=== PATIENT | female | born 1975 | race Caucasian/White ===

== ENCOUNTER 2021-01-13 13:29 | Outpatient (CLI) | payer BC, SELFPAY ==
[2021-01-13 14:08] LABS: Add Urine Microscopic? YES; Appearance Urine Cloudy (Clear); Bilirubin Urine Negative (Negative); Blood Urine 3+ (Negative); Color Urine Amber (Yellow); Glucose Urine UA Negative (Negative); Ketones Urine Negative (Negative); Leukocyte Esterase Ur 1+ LEU/UL (Negative); Nitrate Urine Negative (Negative); Protein Urine 2+ mg/dL (Negative); RBC Urine >75 /hpf (0-2); Specific Grav Ur 1.023 (1.001-1.035); Squamous Epithelial Cell Urine Many /hpf (Few); WBC Urine >75 /hpf
[2021-01-13 14:49] LABS: Thyroid Stimulating Hormone 0.072 uIU/mL (0.465-4.680)
== END 2021-01-13 13:30 | disposition home or self-care (01) ==
PROVIDERS: PCP Internal Medicine; Visit Provider Internal Medicine
DX: R30.0 Dysuria (principal); E03.9 Hypothyroidism, unspecified
CPT/HCPCS: 36415; 81001; 84439; 84443; 87086; 87088

== ENCOUNTER 2021-01-14 08:47 | Outpatient (CLI) | payer BC, SELFPAY ==
--- NOTE | ~2021-01-14 | CT_ITS ---
EXAMINATION: CT abdomen pelvis w con INDICATION: Hematuria TECHNIQUE: Computed tomographic images of the abdomen and pelvis were obtained after the administrati on of 100 cc of Omnipaque 350 intravenous contrast. The dose-length product (DLP) was 946.76 mGy-cm. Automated exposure control and iterative reconstruction technique were employed. COMPARISON: None available FINDINGS: Minimal dependent atelectasis is present in the lung bases. The heart size is normal. The g allbladder is surgically absent. Surgical changes in the stomach likely reflect gastric sleeve surger y. The liver, spleen, pancreas, and adrenal glands are normal. There is a 7 mm stone in a lower pole calyx left kidney. The right kidney is unremarkable. There is no hydronephrosis or hydroureter. No pa thologically enlarged abdominal or pelvic lymph nodes are identified. There is no free intraperitonea l gas or evidence of bowel obstruction. A moderate volume of colonic stool is present. The appendix i s normal. There is moderate lumbar spondylosis. IMPRESSION: 1. 7 mm stone in a lower pole calyx of the left kidney. Reviewed, dictated and finalized at location A. ER OPERATOR
== END 2021-01-14 08:48 | disposition home or self-care (01) ==
LOC: ANHIMG 08:55
PROVIDERS: PCP Internal Medicine; Visit Provider Internal Medicine
DX: R31.9 Hematuria, unspecified (principal); R10.9 Unspecified abdominal pain; N20.0 Calculus of kidney
CPT/HCPCS: 74177; Q9967

== ENCOUNTER 2021-01-16 10:53 | Outpatient (CLI) | payer BC, SELFPAY ==
--- NOTE | ~2021-01-16 | XR_ITS ---
EXAMINATION: XR abdomen/kub 1V INDICATION: Nephrolithiasis TECHNIQUE: Supine views of the abdomen were obtained on 2 radiographs. COMPARISON: CT, 01/14/2021 FINDINGS: There is a 7 mm stone in the lower pole of the left kidney. No stones are identified along the expected courses of the ureters or bladder. There are phleboliths of the pelvis. A large volume o f colonic stool is present. Surgical changes of the stomach are again noted. There are cholecystectom y clips. IMPRESSION: 1. Left nephrolithiasis. 2. Constipation. Reviewed, dictated and finalized at location A. HER
== END 2021-01-16 10:54 | disposition home or self-care (01) ==
PROVIDERS: PCP Internal Medicine; Visit Provider Urology
DX: N20.0 Calculus of kidney (principal); K59.00 Constipation, unspecified
CPT/HCPCS: 74018

== ENCOUNTER → 2021-01-20 00:24 | Outpatient (CLI) | payer BC, SELFPAY ==
[2021-01-20 19:32] LABS: SARS-CoV-2 RNA PCR Negative
== END ==
PROVIDERS: PCP Internal Medicine; Visit Provider Urology
DX: Z01.812 Encounter for preprocedural laboratory examination (principal); Z20.822 Contact with and (suspected) exposure to COVID-19
CPT/HCPCS: C9803; U0003; U0005

== ENCOUNTER 2021-01-22 10:14 | Outpatient (CLI) | payer BC, SELFPAY ==
[2021-01-22 10:44] LABS: INR 0.9; Prothrombin Time 12.9 Seconds (11.1-14.7)
[2021-01-22 10:45] LABS: Partial Thromboplastin Time 26.7 SECONDS (22.3-36.8)
== END 2021-01-22 10:15 | disposition home or self-care (01) ==
PROVIDERS: PCP Internal Medicine; Visit Provider Urology
DX: N20.0 Calculus of kidney (principal); Z01.818 Encounter for other preprocedural examination
CPT/HCPCS: 36415; 85610; 85730

== ENCOUNTER 2021-01-23 01:55 | Day surgery (SDC) | payer BC, SELFPAY ==
[2021-01-20 13:10] VITALS: BMI 33.7
[2021-01-23] VITALS (7 sets, daily range): BP systolic 114–128; BP diastolic 71–92; PULSE 70–86; RESP 16–20; TEMP 36.2–36.6; O2SAT 93–100; BMI 33.8
--- NOTE | ~2021-01-23 | XR_ITS ---
EXAMINATION: XR abdomen/kub 1V EXAM DATE: 01/23/2021 10:05 INDICATION: Left-sided stone, lithotripsy. TECHNIQUE: Frontal projection of the upper abdomen, frontal projection lower abdomen/pelvis for inter pretation. Comparison is made to prior examination from 01/16/2021. FINDINGS: Again there is approximately 7 mm calcific density projecting over the lower pole of the l eft kidney. This finding has been indicated, marked on the examination for review, clinical correlati on. There are cholecystectomy clips. Moderate amount of colonic stool and gas. No small bowel dilatio n. There are no osseous abnormalities identified. IMPRESSION: Left nephrolithiasis reidentified. Reviewed, dictated and finalized at location B. MA DOCTOR
--- NOTE | 2021-01-23 10:28 | WPDANESEPPF ---
Anes - Initial Pre Proc Eval Procedure: Operation Date: 01/23/21 12:00 Proposed Procedures p Left Renal Extracorporeal Shock Wave Lithotripsy - Reg Milan MD s Flexible Cystoscopy - Reg Milan MD Date/Time: 01/23/21 10:28 Surgeon: Reg Milan MD Pre Op Diagnosis: Kidney Stone Patient Data Age: 45 Gender: F Height: 5 ft 3 in Weight: 86.6 kg Last Vital Signs Temp 97.9 F 01/23/21 10:25 Pulse 86 01/23/21 10:25 Resp 18 01/23/21 10:25 BP 128/92 H 01/23/21 10:25 Pulse Ox 99 01/23/21 10:25 Allergies Allergy/AdvReac Type Severity Reaction Status Date / Time morphine AdvReac Severe N/V Verified 01/23/21 10:13 Home Medications Medication Instructions Recorded Confirmed Type alprazolam 0.5 mg tablet 0.5 mg PO PRN PRN 11/01/19 01/23/21 History atomoxetine 60 mg capsule 60 mg PO DAILY #90 cap 08/21/20 01/23/21 Rx duloxetine 30 mg capsule,delayed 60 mg PO .in am and 1 in pm #270 08/22/20 01/23/21 Rx release cap levothyroxine 150 mcg tablet 150 mcg PO DAILY #90 tablet 10/16/20 01/23/21 Rx hydrocodone 5 mg-acetaminophen 325 1 tablet PO Q12H PRN #60 tablet 01/14/21 01/23/21 Rx mg tablet Patient hx anesthesia problems: none Family hx anesthesia problems: none PMFSH Past Medical History Medical History (Updated 01/23/21 @ 10:26 by Ye Gonzales MD) Adult ADHD Hyperlipidemia Hypothyroidism Family History Family History Mother Hypertension Patient's mother is in good health Father Patient's father is in good health Social History Social History Smoking packs per day: 0.5 Smoking cigarettes per day: 10.0 Years smoked: 20 Smoking pack-years: 10.00 Smoking status: Light tobacco smoker Second hand tobacco smoke exposure: No Smoking end date: 11/29/13 Additional smoking assessment comments: 1/2ppd x 15years Alcohol intake: never Substance use: never Living arrangements: with family Spiritual care concerns: No Anes - Eval Final PreProcedure Day of Procedure 01/23/21 10:28 Patient weight: obese Heart: regular rate and rhythm Lungs: clear to auscultation Airway: Mallampati scale class II Neurological: alert and oriented Last oral intake: >/= 8 hours ASA classification: III Emergent: no Anesthetic plan: proceed Anesthesia type and monitoring: general LMA and standard monitoring Informed Consent: The patient's anesthetic plan and its attendant risks and benefits were discussed with the patient/family/POA. Questions were solicited and answers provided to the satisfaction of the patient/family/POA.
[2021-01-23] MEDS: LACTATED RINGERS 1,000 ML 30 ML IV CONT (10:37)
--- NOTE | 2021-01-23 12:20 | WPDHPUPDATE1 ---
History and Physical Update Update Date/Time: 01/23/21 12:20 History and Physical has been reviewed, including an updated exam of the patient. There are NO changes in the patient's condition. Risks, benefits, and alternatives have been discussed and questions answered. Patient agrees to proceed with procedure. eswl of left renal calculus with flexible cysto.
[2021-01-23] MEDS: ceFAZolin 2 GM/D5W 50 ML 2 GM/50 ML BAG IVPB (12:32)
--- NOTE | 2021-01-23 13:11 | PM.PROC ---
Procedure Note - Detailed Date of procedure: 01/23/21 Pre-op diagnosis: Kidney Stone Left renal calculus 8-9 mm, gross hematuria Post-op diagnosis: same Procedure performed: Flexible cystoscopy and lithotripsy of left renal calculus Description of procedure: Patient is taken the operative suite and correctly identified. Once anesthesia was obtained she was placed in a frog-leg position and prepped and draped usual sterile fashion. A 16 [place] flexible scope was inserted into the bladder. There is no tumors noted. Both ureteral orifices normal anatomic position. The patient was then repositioned. The left renal stone was localized in both planes. Two thousand five hundred shocks were given to the stone. Patient tolerated procedure well without complications taken recovery stable condition. She will follow up in about 10 days with KUB. Anesthesia: GLMA Surgeon: Reg Milan MD Drains: No Packing: No Pathology: none sent Complications: No immediate complications Condition: stable Disposition: PACU
[2021-01-23] MEDS: ONDANSETRON INJ 4 MG/2 ML VIAL IV PUSH (13:57)
[2021-01-23] MEDS: oxyCODONE HCL (*CRX) 5 MG TAB IR PO (14:32)
== END 2021-01-23 15:10 | disposition home or self-care (01) ==
PROVIDERS: PCP Internal Medicine; Visit Provider Urology
PROC: (CPT 50590; principal; 2021-01-23 12:00)
PROC: 0TJB8ZZ Inspection of Bladder, Via Natural or Artificial Opening Endoscopic (ICD-10-PCS; CPT 52000; 2021-01-23 12:00)
DX: N20.0 Calculus of kidney (principal); E78.5 Hyperlipidemia, unspecified; E03.9 Hypothyroidism, unspecified; F90.9 Attention-deficit hyperactivity disorder, unspecified type; Z87.891 Personal history of nicotine dependence; E66.9 Obesity, unspecified; Z68.33 Body mass index [BMI] 33.0-33.9, adult
CPT/HCPCS: 50590; 36415; 74018; 85610; 85730; A9270; C9803; J0690; J2250; J2405; J2704; J3010; J7030; J7120; U0003; U0005

== ENCOUNTER 2021-02-03 09:42 | Outpatient (CLI) | payer BC, SELFPAY ==
--- NOTE | ~2021-02-03 | XR_ITS ---
EXAMINATION: XR abdomen/kub 1V INDICATION: 10 days post lithotripsy of the left kidney stone TECHNIQUE: Supine views of the abdomen were obtained on 2 radiographs. COMPARISON: 01/23/2021 FINDINGS: Cholecystectomy clips are present in the right upper quadrant. The previously described lef t kidney lower pole stone is no longer identified. A faint calcification decrease in size of the left kidney lower pole may reflect residual stone fragments. No stones are identified along the expected courses of the ureters or bladder. The bowel gas pattern is normal. There are phleboliths of the pelv is. Left upper quadrant surgical changes likely relate to gastric sleeve or gastric bypass. IMPRESSION: 1. Findings consistent with interval left lithotripsy with possible small stone fragments in the lowe r pole of the left kidney. Reviewed, dictated and finalized at location A. AD SINGER IMPRESSION: 1. Findings consistent with interval left lithotripsy with possible small stone fragments in the lower pole of the left kidney.
== END 2021-02-03 09:43 | disposition home or self-care (01) ==
PROVIDERS: PCP Internal Medicine; Visit Provider Urology
DX: R10.9 Unspecified abdominal pain (principal); Z87.442 Personal history of urinary calculi
CPT/HCPCS: 74018

== ENCOUNTER 2022-08-10 11:07 | Outpatient (CLI) | payer BC, SELFPAY ==
--- NOTE | ~2022-08-10 | XR_ITS ---
EXAMINATION: XR chest 2V DATE: 08/10/2022 11:21 INDICATION: Cough TECHNIQUE: PA and lateral views of the chest were obtained. COMPARISON: None FINDINGS: The lungs are clear with no focal airspace opacities, pulmonary edema, pleural effusion or pneumothor ax. The cardiomediastinal silhouette is normal. Post cystectomy clips in right upper quadrant. Modera te spondylosis in the upper thoracic spine. IMPRESSION: 1. No acute cardiopulmonary disease. Reviewed, dictated and finalized at location A.
== END 2022-08-10 11:08 | disposition home or self-care (01) ==
LOC: ANHIMG 11:13
PROVIDERS: PCP Internal Medicine; Visit Provider Internal Medicine
DX: R05.9 Cough, unspecified (principal)
CPT/HCPCS: 71046

== ENCOUNTER 2024-02-25 09:45 | Outpatient (CLI) | payer BC, SELFPAY ==
--- NOTE | ~2024-02-25 | MR_ITS ---
EXAMINATION: MR lumbar spine wo con DATE: 02/25/2024 12:54 INDICATION: Lumbar radiculopathy. Low back pain. TECHNIQUE: Magnetic resonance imaging (MRI) of the lumbar spine was performed without intravenous con trast. Sequences included sagittal T2-weighted FSE, sagittal T2-weighted FS FSE, sagittal T1-weighted FSE, and axial T2-weighted FSE. COMPARISON: None FINDINGS: Bone alignment is normal. Vertebral body heights are normal. There is a hemangioma in L4 ve rtebral body. There is mildly decreased disc height at L4-L5 and severely decreased disc height at L5 -S1. The distal spinal cord signal intensity is normal. The conus medullaris is at L1. The following disc levels are specifically discussed: L1-L2: The disc does not extend beyond the endplate margin. There is mild bilateral facet joint osteo arthritis. There is no neural foraminal stenosis. There is no central canal stenosis. L2-L3: The disc does not extend beyond the endplate margin. There is mild bilateral facet joint osteo arthritis. There is no neural foraminal stenosis. There is no central canal stenosis. L3-L4: The disc does not extend beyond the endplate margin. There is mild bilateral facet joint osteo arthritis. There is no neural foraminal stenosis. There is no central canal stenosis. L4-L5: The disc is bulging. There is mild bilateral facet joint osteoarthritis. There is mild bilater al neural foraminal stenosis. There is no central canal stenosis. L5-S1: The disc is bulging and has an annular fissure. There is severe right and moderate left facet joint osteoarthritis. There is mild bilateral neural foraminal stenosis. There is mild central canal stenosis. IMPRESSION: 1. Severe lower lumbar spondylosis. Reviewed, dictated and finalized at location A.
== END 2024-02-25 09:46 | disposition home or self-care (01) ==
PROVIDERS: PCP Internal Medicine; Visit Provider Pain Medicine Interventional Pain Medicine
DX: M47.26 Other spondylosis with radiculopathy, lumbar region (principal); M47.27 Other spondylosis with radiculopathy, lumbosacral region; F41.1 Generalized anxiety disorder
CPT/HCPCS: 72148

== ENCOUNTER 2025-02-23 15:30 | Outpatient (CLI) | payer OTHER, SELFPAY ==
--- NOTE | ~2025-02-23 | MM_ITS ---
EXAMINATION: MM screening [facility] w [facility] HISTORY: Screening TECHNIQUE: Craniocaudal and mediolateral oblique 3-D tomosynthesis images were obtained and synthetic 2-D images were generated. CAD analysis was submitted and interpreted. COMPARISON: 04/23/2018 BREAST PARENCHYMAL COMPOSITION: There are scattered areas of fibroglandular density. FINDINGS: Stable parenchymal pattern without suspicious microcalcifications, architectural distortion, discrete masses or significant asymmetry. IMPRESSION: 1. No mammographic evidence of malignancy. 2. Recommend routine screening mammography in one year. BI-RADS Category 1: Negative Reviewed, dictated and finalized at location A.
--- OUTSIDE RECORDS SUMMARY | 2025-02-23 15:38 | XMS_ITS | Clinical Summary ---
Author Organization [facility] Address [address] [place] [id number] Phone Care Team Providers Care Call Center Supervisor Name Role Phone Julian Sims MD Primary Care Provider [phone] Active Problems Problem Noted Date Diagnosed Date Morbid obesity 06/25/2017 Social History Tobacco Use Types Packs/Day Years Used Date Smoking Tobacco: Never Assessed Comments Unknown Sex and Gender Information Value Date Recorded Sex Assigned at Not on file Legal Sex Female 11:38 PM CDT Gender Identity Not on file Sexual Orientation Not on file Plan of Treatment Health Maintenance Due Date Last Done Comments Hepatitis C Virus (HCV) Screening 1974 TdaP Immunization 1974 Hepatitis B Immunization (1 of 3 - 19+ 3-dose series) 1993 Colonoscopy 2019 Colorectal Cancer Screening 2019 Cologuard 2024 Immunochemical Fecal Occult Blood 2024 Pneumococcal Immunization (5 0+ years) (1 of 1 - PCV) 2024 Zoster Immunization (1 of 2) 2024 Influenza Immunization (#1) 2024 SARS-COV-2 Immunization ( - 2023- season) 2024 Respiratory Syncytial Virus (RSV) Immunization (Adult) (1 - 1-dose 75+ series) 2049 Meningococcal Immunization (ACWY) Aged Out No longer eligible based on patient's age to complete this topic Rotavirus Immunization Aged Out No lo nger eligible based on patient's age to complete this topic Insurance Care Teams Call Center Supervisor Relationship Specialty Start Date End Date Julian Sims MD [address] [place] [address] PCP - General Internal Medicine 06/03/17
--- OUTSIDE RECORDS SUMMARY | 2025-02-23 15:38 | XMS_ITS | Clinical Summary ---
Author Organization [address] Address [address] [place] [id number] Care Team Providers Care Labor Delivery Rn Name Role Phone Luke Rodriguez MD Primary Care Provider [phone] Allergies Active Allergy Reactions Criticality Noted Date Comments Morphine Nausea And Vomiting 08/17/2017 Medications levothyroxine (SYNTHROID) 200 mcg tablet TAKE ONE TABLET BY MOUTH DAILY 30 2 01/29/[address] (CYMBALTA) 30 mg capsule take 1 capsule by ORAL route every day 30 1 12/28/2016 Active HYDROcodone-edmar taminophen (NORCO) 5-325 mg per tablet Take 1 tablet by mouth every 4 (four) hours as needed for pain Earliest Fill Date: 08/13/17. 120 tablet 08/13/2017 Active omeprazole (PriLOSEC) 20 mg capsule Take 20 mg by mouth 05/22/2022 Active ALPRAZolam (XANAX) 0.5 mg tablet 09/11/2022 Active Active Problems Problem Noted Date Diagnosed Date Morbid obesity 06/25/2017 Immunizations Immunization Administration Dates Next Due Influenza, Quadrivalent, Spl it, Preservative Free, Intramuscular 08/28/2016 Surgical History Surgery Date Site/Laterality Comments SECTION 1992 section HYSTERECTOMY 2004 Hysterectomy Medical History Medical History Date Comments Hx Other Medical 2000 gallbladder Family History Medical History Relation Name Comments Other Father thyroid; Hypertension Mother Hypertension; Other Other Family history of chrones disease; Relation Name Status Comments Father Mother Other Social History Tobacco Use Types Packs/Day Years Used Date Smoking Tobacco: Former Cigarettes Q uit: 2017 Tobacco Cessation:Counseling Given: Not Answered Comments Unknown Sex and Gender Information Value Date Recorded Sex Assigned at Not on file Legal Sex Female 1:44 AM PARKING MANAGER Gender Identity Not on file Sexual Orientation Not on file Obstetrics History Last Filed Vital Signs Vital Sign Reading Time Taken Comments Blood Pressure 124/82 01/28/2017 9:57 AM PARKING MANAGER Pulse 83 01/28/2017 9:57 AM PARKING MANAGER Temperature - - Respiratory Rate - - Oxygen Saturation 97% 01/28/2017 9:57 AM PARKING MANAGER Inhaled Oxygen Concentration - - Weight 93.9 kg (207 lb) 01/06/2023 2:57 PM PARKING MANAGER Height 160 cm (5' 3 ) 01/06/2023 2:57 PM PARKING MANAGER Body Mass Index 36.67 01/06/2023 2:57 PM PARKING MANAGER Plan of Treatment Health Maintenance Due Date Last Done Comments Breast Cancer Screening-Mammogram 1974 Colon Cancer Screening-Colonoscopy 1974 Depression Screening 1974 Hepatitis C Screening 1974 DTaP/Tdap/Td Vaccine (1 - Tdap) 1985 Hepatitis B Screening 1992 Regular Well Visit/Exam 18-64 1992 Zoster Vaccine (1 of 2) 2024 Covid-19 Vaccine (2 - 2023-2 5 season) 2024 04/04/2021 Influenza Vaccine (#1) 2024 7, 08/28/2016 Pneumococcal vaccine <65 Aged Out No longer eligible based on patient's age to complete this topic Insurance [facility] CHOICE PLUS BLUE ACCESS OOS BLUE ACCESS OOS Care Teams Labor Delivery Rn Relationship Specialty Start Date End Date Luke Rodriguez MD [address] [facility] [address] [place] [address] PCP - General Internal Medicine 08/17/22
--- OUTSIDE RECORDS SUMMARY | 2025-02-23 15:38 | XMS_ITS | Referral Summary ---
Author Organization [address] Address [address] [place] [id number] Care Team Providers Care Code Enforcement Officer Name Role Phone Luke Rodriguez MD Primary Care Provider [phone] Allergies Active Allergy Reactions Criticality Noted Date [...] Quadrivalent, Spl it, Preservative Free, Intramuscular 08/28/2016 Social History Tobacco Use Types Packs/Day Years Used Date Smoking Tobacco: Former Cigarettes Q uit: 2017 Tobacco Cessation:Counseling Given: Not Answered Comments Unknown Sex and Gender Information Value Date Recorded Sex Assigned at Not on file Legal Sex Female 1:44 AM ACCOUNT DEVELOPMENT SPECIALIST Gender Identity Not on file Sexual Orientation Not on file Last Filed Vital Signs Vital Sign Reading Time Taken Comments Blood Pressure 124/82 01/28/2017 9:57 AM ACCOUNT DEVELOPMENT SPECIALIST Pulse 83 01/28/2017 9:57 AM ACCOUNT DEVELOPMENT SPECIALIST Temperature - - Respiratory Rate - - Oxygen Saturation 97% 01/28/2017 9:57 AM ACCOUNT DEVELOPMENT SPECIALIST Inhaled Oxygen Concentration - - Weight 93.9 kg (207 lb) 01/06/2023 2:57 PM ACCOUNT DEVELOPMENT SPECIALIST Height 160 cm (5' 3 ) 01/06/2023 2:57 PM ACCOUNT DEVELOPMENT SPECIALIST Body Mass Index 36.67 01/06/2023 2:57 PM ACCOUNT DEVELOPMENT SPECIALIST Plan of Treatment Not on file Insurance [facility] [employer] PLUS [employer] OOS [employer] ACCESS OOS Care Teams Code Enforcement Officer Relationship Specialty Start Date End Date Luke Rodriguez MD [address] [place] [address] PCP - General Internal Medicine 08/17/22
--- OUTSIDE RECORDS SUMMARY | 2025-02-23 15:38 | XMS_ITS | Clinical Summary ---
Author Organization [facility] [employer] Address [address] [place] [address] Care Team Providers Care Speeder Tender Name Role Phone Luke Rodriguez DO Primary Care Provider [phone] Source Comments [facility] [employer]non-owned Affiliates and Associated Physician Practices is amultiple site organization consisting of ambulatory clinics and hospital sitesin [place], [place], [place] and [place]. This disclosure is being madepursuant to the Care Everywhere program and may not contain all information available regarding this patient. Last updated 18.[facility] [employer] Allergies Active Allergy Reactions Criticality Noted Date Comments Morphine Nausea and/or Vomiting 08/17/2017 Medications * Be aware that medications may not be up to date on this document. Alwaysverify current medications with the patient. Medication Sig Dispensed Refills Start Date End Date Status DULoxetine (CYMBALTA) 30 MG capsule Take 1 (one) capsule by mouth 2 times daily Active levothyroxine (Synthroid) 150 MCG tablet 1 (one) tablet daily before breakfast 09/12/2022 Active ALPRAZolam (Xanax) 0.5 MG tablet Take 1 (one) tablet by mouth nightly as needed for Anxiety or Insomnia Active HYDROcodone-acetami nophen ([place]) 5-325 MG tablet Take 1 (one) tablet by mouth every 6 hours as needed for Pain Active omeprazole (PriLOSEC) 20 MG capsule TAKE 1 CAPSULE BY MOUTH TWICE A DAY BEFORE BREAKFAST AND SUPPER 180 capsule 1 03/05/2023 Active Active Problems Problem Noted Date Diagnosed Date S/P gastric bypass 09/29/2022 Morbid obesity with BMI of 40.0-44.9, adult 1002/2017 Family History Medical History Relation Name Comments Diabetes - Type 2 Other Hypertension Other Relation Name Status Comments Other Social History Tobacco Use Types Packs/Day Years Used Date Smoking Tobacco: Former Cigarettes Q uit: 07/08/2017 Smokeless Tobacco: Never Alcohol Use Standard Drinks/Week Comments Yes 0 (1 standard drink = 0.6 oz pur e alcohol) rare Hunger Vital Sign Answer Date Recorded Within the past 12 months, y ou worried that your food would run out before you got the money to buy more. Never true 09/30/20 22 Within the past 12 months, t he food you bought just didn't last and you didn't have money to get more. Never true 09/30/2022 Sex and Gender Information Value Date Recorded Sex Assigned at Not on file Gender Identity Not on file Sexual Orientation Not on file Last Filed Vital Signs Vital Sign Reading Time Taken Comments Blood Pressure 117/77 04/23/2023 1:50 PM CDT Pulse 69 04/23/2023 1:50 PM CDT Temperature 36.9 C (98.4 F) 04/23/2023 1:50 PM CDT Respiratory Rate 16 04/23/2023 1:50 PM CDT Oxygen Saturation 97% 04/23/2023 1:50 PM CDT Inhaled Oxygen Concentration - - Weight 74.5 kg (164 lb 3.2 oz) 04/23/2023 1:50 P M CDT Height 160 cm (5' 3 ) 04/23/2023 1:50 PM CDT Body Mass Index 29.09 04/23/2023 1:50 PM CDT Plan of Treatment Health Maintenance Due Date Last Done Comments COLOGUARD (AGES 45-75) - COLON CA SCREENING 1974 COLON MONITORING 1974 COLONOSCOPY - COLON CA SCREENING 1974 CT COLONOGRAPHY - COLON CA SCREENING 1974 Colorectal Cancer Screening 1974 FIT - COLON CA SCREENING 1974 FLEX SIG - COLON CA SCREENING 1974 MAMMOGRAM 1974 PAP SMEAR 1974 HIV SCREENING 1989 HEPATITIS C SCREENING 05/18/1992 DTAP/TDAP/TD VACCINES (1 - Tdap) 1993 HEPATITIS B VACCINE (1 of 3 - 19+ 3-dose series) 1993 PNEUMOCOCCAL VACCINE 50+ (1 of 1 - PCV) 2024 ZOSTER VACCINE (1 of 2) 2024 COVID-19 VACCINE (2 - season) 2024 04/04/2021 INFLUENZA VACCINE (#1) 2024 0 (Done Outside Per Patient), 08/22/2019 (Done Outside Per Patient), 08/28/2016 DEPRESSION SCREENING 11/29/2024 SCREENING FOR DIABETES 06/02/2026 3, 10/01/2022, 09/30/2022, Additional history exists LIPID TESTING 06/02/2028 06/02/2023, 03/2020, 04/27/2019, Additional history exists HIB VACCINE Aged Out No longer eligi ble based on patient's age to complete this topic HPV VACCINE Aged Out No longer eligi ble based on patient's age to complete this topic MENINGOCOCCAL (Group B) VACCINE SHARED DECISION-MAKING Aged Out No longer eligible based on patient's age to complete this topic MENINGOCOCCAL GROUPS A/C/Y/W VACCINE Aged Out No longer eligible based on patient's age to complete this topic Procedures Procedure Name Priority Date/Time Associated Diagnosis Comments COMPREHENSIVE METABOLIC PANEL Routine 06/02/2023 10:00 AM CDT Morbid obesity Bariatric surgery status Vitamin deficiency Vitamin D deficiency Postsurgical malabsorption LIPID PROFILE Routine 06/02/2023 10:00 AM CDT Morbid obesity Bariatric surgery status Vitamin deficiency Vitamin D deficiency Postsurgical malabsorption from Last 3 Months or Most Recently Relevant to Health Maintenance Results * (ABNORMAL) COMPREHENSIVE METABOLIC PANEL (06/02/2023 10:00 AM CDT) Glucose 83 70 - 99 mg/dL [facility] ACCOUNT BILL BUN 18 6 - 24 mg/dL [facility] ACCOUNT BILL Creatinine 0.53(L) 0.57 - 1.00 mg/dL [facility] ACCOUNT BILL eGFR by CKD-EPI 113 >59 mL/min/1.7 3 [facility] ACCOUNT BILL BUN/Creatinine Ratio 34(H) 9 - 23 [facility] ACCOUNT BILL Sodium 140 134 - 144 mmol/L [facility] ACCOUNT BILL Potassium 4.4 3.5 - 5.2 mmol/L [facility] ACCOUNT BILL Chloride 102 96 - 106 mmol/L [facility] ACCOUNT BILL CO2 23 20 - 29 mmol/L [facility] ACCOUNT BILL Calcium 9.9 8.7 - 10.2 mg/dL [facility] ACCOUNT BILL Protein Total 6.7 6.0 - 8.5 g/dL [facility] ACCOUNT BILL Albumin 4.7 3.8 - 4.8 g/dL [facility] ACCOUNT BILL Comment: Effective June 07, 2023 Albumin reference interval will be changing to: Age Male Female 0 - 7 days 3.6 - 4.9 3.6 - 4.9 8 - 30 days 3.5 - 4.6 3.5 - 4.6 1 - 6 months 3.7 - 4.8 3.7 - 4.8 7 months - 2 years 4.0 - 5.0 4.0 - 5.0 3 - 5 years 4.1 - 5.0 4.1 - 5.0 6 - 12 years 4.2 - 5.0 4.2 - 5.0 13 - 30 years 4.3 - 5.2 4.0 - 5.0 31 - 50 years 4.1 - 5.1 3.9 - 4.9 51 - 60 years 3.8 - 4.9 3.8 - 4.9 61 - 70 years 3.9 - 4.9 3.9 - 4.9 71 - 80 years 3.8 - 4.8 3.8 - 4.8 81 - 89 years 3.7 - 4.7 3.7 - 4.7 90 - 199 years 3.6 - 4.6 3.6 - 4.6 Globulin Total 2.0 1.5 - 4.5 g/dL [facility] ACCOUNT BILL Albumin/Globulin Ratio 2.4(H) 1.2 - 2.2 [facility] ACCOUNT BILL Bilirubin Total 1.1 0.0 - 1.2 mg/dL [facility] ACCOUNT BILL Alkaline Phosphatase 68 44 - 121 IU/L [facility] ACCOUNT BILL AST 24 0 - 40 IU/L [facility] ACCOUNT BILL ALT 36(H) 0 - 32 IU/L [facility] ACCOUNT BILL Comment:FASTING Blood BLOOD SPECIMEN / Unknown 06/02/2023 10:00 AM CDT 06/02/2023 Narrative Resulting Agency Comment Lab Testing performed at: [facility] [address] [id number] Vicky Menon APRN-[facility] - CHEMIS TRY ORDERABLES [facility] ACCOUNT BILL [address] [place] [address] * LIPID PROFILE (LIPID PANEL) (06/02/2023 10:00 AM CDT) Cholesterol 164 100 - 199 mg/dL [facility] ACCOUNT BILL Triglycerides 100 0 - 149 mg/dL [facility] ACCOUNT BILL HDL Cholesterol 47 >39 mg/dL [facility] ACCOUNT BILL VLDL Calculated 18 5 - 40 mg/dL [facility] ACCOUNT BILL LDL Calculated 99 0 - 99 mg/dL [facility] ACCOUNT BILL Comment NOT AVAILABLE [facility] ACCOUNT BILL Comment: FASTING Result cannot be obtained for this observation. Blood BLOOD SPECIMEN / Unknown 06/02/2023 10:00 AM CDT 06/02/2023 Narrative Resulting Agency Comment Lab Testing performed at: [facility] [place] [address] [id number] Vicky Menon APRN-[facility] - CHEMIS TRY ORDERABLES Performing Organization Address City/[facility]/ZIP Co de Phone Number [facility] ACCOUNT BILL [address] [place] [address] from Last 3 Months or Most Recently Relevant to Health Maintenance Advance Directives * Full Code (Latest Code Status on File) Date Activated Date Inactivated Comments 09/29/2022 6:56 PM 10/01/2022 7:38 PM * Full Code Date Activated Date Inactivated Comments 09/01/2017 12:56 PM 09/03/2017 1:21 PM Care Teams Speeder Tender Relationship Specialty Start Date End Date Luke Rodriguez DO [address] [place], [place] [id number] PCP - General Internal Medicine 11/04/19
== END 2025-02-23 15:31 | disposition home or self-care (01) ==
LOC: ANHIMG 15:36
PROVIDERS: PCP Internal Medicine; Visit Provider Obstetrics & Gynecology
DX: Z12.31 Encounter for screening mammogram for malignant neoplasm of breast (principal)
CPT/HCPCS: 77063; 77067